=== PATIENT | female | born 1985 | race American Indian/Alaskan Native ===

== ENCOUNTER 2016-07-05 12:15 | Outpatient (CLI) | payer MEDICAID ==
[2016-07-05] MEDS ORDERED: LACTATED RINGERS 500 ML IV ONE (12:29)
[2016-07-05] MEDS ORDERED: LACTATED RINGERS 1,000 ML IV SCH (13:00)
[2016-07-05 14:12] LABS: Bilirubin,Urine NEG (Negative); Blood,Urine MOD (Negative); Ketones,Urine NEG (Negative); Leukocyte Esterase,Urine TR (Negative); Mucus,Urine 1+ /HPF; Nitrite,Urine NEG (Negative); Protein,Urine <15 mg/dL mg/dL (Negative); Urobilinogen,Urine < 2.0 mg/dL (<2.0)
[2016-07-05 14:25] VITALS: BP 103/63
--- NOTE | 2016-07-06 10:38 | Ultrasound Report ---
BIOPHYSICAL PROFILE: 2 - breathing movements 2 - movements 2 - posture and tone 2 - Qualitative amniotic fluid volume 8 - TOTAL SCORE OF POSSIBLE 8 Heart Rate (bpm) 155 Gestation: Single Position: Cephalic Amniotic Fluid: HANNAH = 10 cm Placenta: Anterior Placental Grade: 1 Heart Rate: 161 BPM Approximate gestation at 34 weeks and 3 days.
== END 2016-07-05 15:00 | disposition home or self-care (01) ==
LOC: TRG 12:15
PROVIDERS: ATTEND Obstetrics & Gynecology
DX: O77.9 Labor and delivery complicated by fetal stress, unspecified (principal); O47.03 False labor before 37 completed weeks of gestation, third trimester; Z3A.34 34 weeks gestation of pregnancy
CPT/HCPCS: 59025; 76815; 76819; 81001; 87086; 96360; J7120